=== PATIENT | female | born 1950 | race Caucasian/White ===

== ENCOUNTER → 2016-08-17 | Outpatient (CLI) | payer OTHER, BC ==
[~2016-08-17] MED LIST: ALPR-411 PO; AMOX875T PO; ASCA500 PO; ASPI81TA28 PO; ATEN50TA8 PO; CHOL100010 PO; CITA20TA4 PO; CYCL10TA6 PO; HYDR-5688 PO; HYDROCHLOROT PO; LSN/10125 PO; MAGN400T6 PO; OMEG10007 PO; OMEP20TA PO; OMG3; PANT40TA PO; SIMV40TA2 PO
[2016-08-17 18:04] LABS: URINE APPEARANCE CLEAR (CLEAR); URINE BILIRUBIN NEG (NEG); URINE COLOR YELLOW; URINE EPITHELIAL CELL AUTO >30 /lpf (0-5); URINE NITRITE NEG (NEG); URINE PH 5.5 (4.5-7.5); UROBILINOGEN NEG (NEG)
[2016-08-17 18:05] LABS: MANUAL MICROSCOPIC REQUIRED? NO; REVIEW REQ? NO
== END | disposition home or self-care (01) ==
LOC: C.LABSPEC 17:27
PROVIDERS: ATTEND Physician Assistant
DX: R10.2 Pelvic and perineal pain (principal)

== ENCOUNTER → 2016-08-22 | Outpatient (CLI) | payer OTHER, BC ==
[~2016-08-22] MED LIST changes: +OPTIRAY 320 IV PRN
--- NOTE | 2016-08-22 12:40 | DIAGNOSTIC IMAGING REPORT ---
ABDOMEN AND PELVIS CT WITH IV AND ORAL CONTRAST CT DOSE: 984.42 mGycm HISTORY: Pain PELVIC PAIN, PREVIOUS UTERINE CANCER TECHNIQUE: Multiaxial CT images of the abdomen and pelvis were performed following the use of intravenous and oral contrast. COMPARISON STUDY: 02/05/2015 FINDINGS: Right breast nodule. This appears to been present on the prior outside CT exam. Also left sided breast nodule not completely seen in the prior study. Diagnostic mammography is suggested. Lung bases are considered clear. Liver spleen and pancreas enhance uniformly. Kidneys demonstrate extrarenal pelves as well as peripelvic cyst. There are several cortical cysts. Bowel pattern within the abdomen and pelvis overall is nonobstructive. There is suggestion of slight wall edema of the sigmoid. There is no evidence for abscess collection or obstruction. IMPRESSION: 1. Mild nonspecific sigmoid colitis. 2. No evidence for abscess collection or obstruction. 3. Bilateral breast nodules with diagnostic mammography suggested. 4. Bilateral renal cysts and parapelvic renal cysts change Electronically signed by: Noel Jarvis M.D. 08/22/2016 12:38 PM Dictated Date/Time: 08/22/2016 12:30 PM
== END | disposition home or self-care (01) ==
LOC: C.CTS 12:09
PROVIDERS: ATTEND Physician Assistant
DX: R10.2 Pelvic and perineal pain (principal); Z85.42 Personal history of malignant neoplasm of other parts of uterus; N63 Unspecified lump in breast; N28.1 Cyst of kidney, acquired

== ENCOUNTER 2016-11-21 14:55 | Inpatient (IN) | payer OTHER, BC ==
[~2016-11-21] VITALS: Ht 175.3 cm; Wt 97.0 kg
[2016-11-21] VITALS (7 sets, daily range): BP systolic 126–145; BP diastolic 72–79; PULSE 68–75; TEMP 36.6–37; O2SAT 93–100; Ht 175.3 cm; Wt 97.0 kg
[~2016-11-21 14:55] MED LIST changes: -AMOX875T PO; -HYDR-5688 PO; -OPTIRAY 320 IV PRN; -PANT40TA PO
[2016-11-21] MEDS ORDERED: MoRPHine SULFATE 10 MG/ML CARP/VIAL IV STA (15:12)
[2016-11-21] MEDS ORDERED: SODIUM CHLORIDE 0.9% 1000ML 1,000 ML IV STA (15:12)
[2016-11-21] MEDS ORDERED: ONDANSETRON INJ 2 MG/ML 2 ML VIAL IV STA (15:12)
[2016-11-21] MEDS ORDERED: PANT40TA PO (15:14)
--- NOTE | 2016-11-21 15:15 | EMERGENCY ROOM VISIT NOTE ---
History First contact with patient: 15:02 Chief Complaint: REFERRED BY DOCTOR Stated Complaint: PAIN IN SIDE, HERNIA History of Present Illness The patient is a 66 year old female who presents to the Emergency Room with complaints of pain in her right groin. The patient reports that she has a right inguinal hernia and has been seeing Dr. Leon for this. She states that her pain was intermittent for the past several months. When she woke up this morning, she had worsening pain and associated nausea. She rates her discomfort a 9/10. She is taking hydrocodone without relief of the pain. She denies any aggravating or relieving factors. She reports a previous hysterectomy and ovarian cyst removal. She has a history of hypertension and hyperlipidemia but is otherwise healthy. She denies any skin changes. She denies any urinary symptoms, changes in bowel movements, fevers or chills. Review of Systems A complete 10 point review of systems was reviewed with the patient with pertinent positives and negatives as per history of present illness. All else were negative. Past Medical/Surgical History Medical Problems: (1) Incarcerated inguinal hernia Social History Smoking Status: Current Every Day Smoker Current/Historical Medications Scheduled Ascorbic Acid (Vitamin C), 1 TAB PO QAM Aspirin (Aspirin Ec), 81 MG PO QPM Atenolol (Tenormin), 50 MG PO QAM Atenolol (Tenormin), 0.5 TAB PO HS Cholecalciferol (Vitamin D), 1,000 INTER.UNIT PO QAM Citalopram Hydrobromide (Citalopram Hydrobromide), 1 TAB PO QAM Fish Oil ([place]-3), 1 CAP PO HS Hctz/Lisinopril (Lisinopril/Hctz 10/12.5 Mg), 1 TAB PO QAM Magnesium Oxide (Mag-Ox), 400 MG PO HS Pantoprazole (Protonix), 40 MG PO BID Simvastatin (Zocor), 40 MG PO QPM Scheduled PRN Alprazolam (Xanax), 0.25 MG PO Q6H PRN for Anxiety Cyclobenzaprine Hcl (Flexeril), 10 MG PO TID PRN for SPASMS Physical Exam Vital Signs Date Time Temp Pulse Resp B/P (MAP) Pulse Ox O2 Delivery O2 Flow Rate FiO2 11/21/16 17:50 36.0 69 14 176/79 96 Oxymask 10 11/21/16 16:19 36.6 65 16 149/89 (109) 96 Room Air 11/21/16 15:58 80 18 190/111 98 11/21/16 14:59 36.7 68 18 183/85 97 Room Air Physical Exam VITALS: Vitals are noted on the nurse's note and reviewed by myself. Vital signs stable. GENERAL: This is a 66-year-old female, uncomfortable appearing, well-developed well-nourished. SKIN: No erythema or warmth. HEART: Regular rate and rhythm without murmurs gallops or rubs. LUNGS: Clear to auscultation bilaterally without wheezes, rales or rhonchi. ABDOMEN: Positive bowel sounds x 4. There is a firm, tender mass in the right inguinal region. Abdomen is otherwise nontender. NEURO: Patient was alert and oriented to person place and time. Medical Decision & Procedures Laboratory Results 11/21/16 15:15 Red Blood Count 4.67, Mean Corpuscular Volume 91.2, Mean Corpuscular Hemoglobin 30.2, Mean Corpuscular Hemoglobin Concent 33.1, Mean Platelet Volume 10.3, Neutrophils (%) (Auto) 71.0, Lymphocytes (%) (Auto) 14.9, Monocytes (%) (Auto) 9.3, Eosinophils (%) (Auto) 4.3, Basophils (%) (Auto) 0.2, Neutrophils # (Auto) 7.55, Lymphocytes # (Auto) 1.58, Monocytes # (Auto) 0.99, Eosinophils # (Auto) 0.46, Basophils # (Auto) 0.02 11/21/16 15:15 Test 11/21/16 15:15 White Blood Count 10.63 K/uL (4.8-10.8) Red Blood Count 4.67 M/uL (4.2-5.4) Hemoglobin 14.1 g/dL (12.0-16.0) Hematocrit 42.6 % (37-47) Mean Corpuscular Volume 91.2 fL (80-100) Mean Corpuscular Hemoglobin 30.2 pg (25-34) Mean Corpuscular Hemoglobin Concent 33.1 g/dl (32-36) Platelet Count 294 K/uL (130-400) Mean Platelet Volume 10.3 fL (7.4-10.4) Neutrophils (%) (Auto) 71.0 % Lymphocytes (%) (Auto) 14.9 % Monocytes (%) (Auto) 9.3 % Eosinophils (%) (Auto) 4.3 % Basophils (%) (Auto) 0.2 % Neutrophils # (Auto) 7.55 K/uL (1.4-6.5) Lymphocytes # (Auto) 1.58 K/uL (1.2-3.4) Monocytes # (Auto) 0.99 K/uL (0.11-0.59) Eosinophils # (Auto) 0.46 K/uL (0-0.5) Basophils # (Auto) 0.02 K/uL (0-0.2) RDW Standard Deviation 44.5 fL (36.4-46.3) RDW Coefficient of Variation 13.4 % (11.5-14.5) Immature Granulocyte % (Auto) 0.3 % Immature Granulocyte # (Auto) 0.03 K/uL (0.00-0.02) Anion Gap 8.0 mmol/L (3-11) Est Creatinine Clear Calc Drug Dose 114.4 ml/min Estimated GFR () 110.1 Estimated GFR (Non- 95.0 BUN/Creatinine Ratio 22.1 (10-20) Calcium Level 9.2 mg/dl (8.5-10.1) Total Bilirubin 0.5 mg/dl (0.2-1) Aspartate Amino Transf (AST/SGOT) 11 U/L (15-37) Alanine Aminotransferase (ALT/SGPT) 23 U/L (12-78) Alkaline Phosphatase 110 U/L (45-117) Total Protein 7.6 gm/dl (6.4-8.2) Albumin 3.7 gm/dl (3.4-5.0) Globulin 3.9 gm/dl (2.5-4.0) Albumin/Globulin Ratio 0.9 (0.9-2) Medications Administered Medications (Trade) Dose Ordered Sig/Efe Route Start Time Stop Time Status Last Admin Dose Admin Sodium Chloride 1,000 ml @ 999 mls/hr Q1H1M STAT IV 11/21/16 15:12 11/21/16 16:12 DC 11/21/16 15:12 999 MLS/HR Ondansetron HCl (Zofran Inj) 4 mg NOW STAT IV 11/21/16 15:12 11/21/16 15:13 DC 11/21/16 15:24 4 MG Morphine Sulfate (MoRPHine SULFATE INJ) 8 mg NOW STAT IV 11/21/16 15:12 11/21/16 15:13 DC 11/21/16 15:25 8 MG Bupivacaine HCl (Marcaine 0.5% MPF Inj) 30 ml STK-MED ONCE .ROUTE 11/21/16 16:25 11/21/16 16:26 DC 11/21/16 17:00 7 ML Lactated Ringer's 1,000 ml @ 100 mls/hr Q10H IV 11/21/16 17:48 12/21/16 17:47 11/21/16 19:52 100 MLS/HR ED Course The patient was evaluated as above. Labs were drawn and IV access was obtained. Patient was medicated with 8 mg morphine IV and [address] Kirkpatrick was consulted due to my concern for strangulated hernia. He will evaluate the patient. Dr. Kirkaptrick will take the patient to the OR for management. Medical Decision Differential diagnosis includes strangulated hernia, reducible hernia, mass, abscess, among others. The patient is a 66-year-old female who presents today complaining of right groin pain. Exam was concerning for a very tender, hard mass in the right groin. General surgery was consulted secondary to the concern for possible incarcerated hernia. Patient was evaluated by Dr. Kirkpatrick, who took the patient to the operating room for management of this. She was given pain medication in the emergency department with some relief of her discomfort. Patient remained stable throughout her ED stay. The patient's case was reviewed with Dr. Vela, ED attending physician, who agreed with my assessment and treatment plan. Medication Reconcilliation Current Medication List: was personally reviewed by ga Blood Pressure Screening Patient's blood pressure: Elevated blood pressure Blood pressure disposition: Elevated BP felt to be situational Impression Primary Impression: Incarcerated inguinal hernia Departure Information Referrals Brandt oDrsey M.D. (PCP) Patient Instructions My [facility]
[2016-11-21] MEDS ORDERED: CEFOXITIN SOD 2 GM VIAL IV STA (15:46)
[2016-11-21 15:49] LABS: BASO % 0.2 %; BASO ABS # 0.02 K/uL (0-0.2); COMPLETE YES; EOS % 4.3 %; HEMATOCRIT 42.6 % (37-47); IG% 0.3 %; LYMPH % 14.9 %; LYMPH ABS # 1.58 K/uL (1.2-3.4); MEAN CELL VOLUME 91.2 fL (80-100); MEAN CORPUSCULAR HEMOGLOBIN 30.2 pg (25-34); MEAN CORPUSCULAR HGB CONC 33.1 g/dl (32-36); MEAN PLATELET VOLUME 10.3 fL (7.4-10.4); MONO % 9.3 %; PLATELET COUNT 294 K/uL (130-400); RED BLOOD COUNT 4.67 M/uL (4.2-5.4); WHITE BLOOD COUNT 10.63 K/uL (4.8-10.8)
[2016-11-21] MEDS ORDERED: FENTANYL CITRATE INJ 50 MCG/1 ML 2 ML VIAL ONE (15:55)
[2016-11-21] MEDS ORDERED: MIDAZOLAM HCL 1 MG/ML 2ML VIAL ONE ×2 (15:55→18:30)
--- NOTE | 2016-11-21 15:55 | History and Physical ---
History & Physical Date Nov 21, 2016. Chief Complaint right groin pain History of Present Illness The patient is a 66 year old female with complaints of right groin pain- known right inguinal hernia- now with lump in that area and very tender Additional History Hepatic Disease: No Endocrine Disorder: No Kidney Disease: No Hypertension: Yes Other: smoker Allergies Coded Allergies: Adhesives (Verified Allergy, Mild, RASH, 11/21/16) Caffeine (Verified Allergy, Mild, HEART PAPLPATATIONS, 11/21/16) NO KNOWN DRUG ALLERGIES (Verified Allergy, Mild, ., 11/25/15) Home Medications Scheduled Ascorbic Acid (Vitamin C), 1 TAB PO QAM Aspirin (Aspirin Ec), 81 MG PO QPM Atenolol (Tenormin), 50 MG PO QAM Atenolol (Tenormin), 0.5 TAB PO HS Cholecalciferol (Vitamin D), 1,000 INTER.UNIT PO QAM Citalopram Hydrobromide (Citalopram Hydrobromide), 1 TAB PO QAM Fish Oil ([place]-3), 1 CAP PO HS Hctz/Lisinopril (Lisinopril/Hctz 10/12.5 Mg), 1 TAB PO QAM Magnesium Oxide (Mag-Ox), 400 MG PO HS Pantoprazole (Protonix), 40 MG PO BID Simvastatin (Zocor), 40 MG PO QPM Scheduled PRN Alprazolam (Xanax), 0.25 MG PO Q6H PRN for Anxiety Cyclobenzaprine Hcl (Flexeril), 10 MG PO TID PRN for SPASMS Physical Examination Skin: warm/dry Eyes: normal inspection Head: atraumatic Neck: supple Respiratory/Chest: no respiratory distress Cardiovascular: regular rate, rhythm Abdomen / GI: + pertinent finding (RLQ/ groin tenderness- no erythema) Extremities: normal inspection Diagnosis incarcerated Rt inguinal hernia Plan of Treatment 11/21/16- for open Right inguinal hernia repair- possible bowel resection if strangulated/ infarcted bowel.
[2016-11-21 15:59] LABS: BUN/CREATININE RATIO 22.1 (10-20); CALCIUM 9.2 mg/dl (8.5-10.1); CREATININE 0.6 mg/dl (0.60-1.20); POTASSIUM 4.1 mmol/L (3.5-5.1)
[2016-11-21] MEDS ORDERED: CEFOXITIN IV 2,000 MG in DEXTROSE 5% 50ML 50 ML IV SCH (16:00)
[2016-11-21 16:02] LABS: ALB/GLOB RATIO 0.9 (0.9-2)
[2016-11-21] MEDS ORDERED: GLYCOPYRROLATE INJ 0.2 MG/ML VIAL ONE (16:12)
[2016-11-21] MEDS ORDERED: ONDANSETRON INJ 2 MG/ML 2 ML VIAL ONE (16:12)
[2016-11-21] MEDS ORDERED: DEXAMETHASONE SOD INJ 4 MG/ML VIAL ONE (16:12)
[2016-11-21] MEDS ORDERED: ROCURONIUM BROMIDE 10 MG/ML 5 ML VIAL IV ONE (16:12)
[2016-11-21] MEDS ORDERED: NEOSTIGMINE METHYLSULFATE 5 MG/5 ML SYR ONE (16:12)
[2016-11-21] MEDS ORDERED: SUCCINYLCHOLINE CHLORIDE 20 MG/ML 10 ML VIAL IV ONE (16:12)
[2016-11-21] MEDS ORDERED: PROPOFOL IV EMULSION 10 MG/ML 20 ML VIAL IV ONE (16:12)
[2016-11-21] MEDS ORDERED: LARYING-O-JET KIT (LTA) ONE ×2 (16:12)
[2016-11-21] MEDS ORDERED: LIDOCAINE HCL 2% 2 ML VIAL (20MG/ML) ONE (16:12)
[2016-11-21] MEDS ORDERED: BUPIVACAINE 0.5 % 5 MG/1 ML MPF 30ML VIAL ONE (16:25)
[2016-11-21] MEDS ORDERED: LIDOCAINE HCL 1% 20 ML VIAL ONE (16:25)
[2016-11-21] MEDS ORDERED: CEFAZOLIN SOD 1 GM VIAL ONE (16:25)
[2016-11-21] MEDS ORDERED: EpHEDrine SULFATE 50MG/5ML SYR ONE (16:49)
[2016-11-21] MEDS ORDERED: KETOROLAC TROMETHAMINE 30 MG/ML VIAL ONE (17:27)
--- NOTE | 2016-11-21 17:48 | [facility] Operative Report ---
Operative Report Operative Date Nov 21, 2016. Pre-Operative Diagnosis Incarcerated Right Inguinal Hernia Post-Operative Diagnosis Same as preop Procedure(s) Performed Right Incarcerated Inguinal Hernia Repair Surgeon Dr. Des Kirkpatrick Bonderite Operator Surgeon(s) Dillon Adkins PA-C Estimated Blood Loss 20ML Findings cecum incarcerated w/n hernia- not infarcted Specimens B. Hernia Sac and Lipoma Drains # [address] Rd LEOBARDO to RLQ wound Anesthesia gen Complication(s) None Disposition Recovery Room / PACU I attest to the content of the Intraoperative Record and any orders documented therein. Any exceptions are noted below.
[2016-11-21] MEDS ORDERED: ONDANSETRON INJ 2 MG/ML 2 ML VIAL IV PRN ×2 (18:00→18:30)
[2016-11-21] MEDS ORDERED: PROMETHAZINE HCL INJ 12.5 MG in SODIUM CHLORIDE 0.9% 50ML 50 ML IV PRN (18:00)
[2016-11-21] MEDS ORDERED: HYDROmorphone INJ 1 MG/ML SYR IV PRN (18:00)
[2016-11-21] MEDS ORDERED: PROMETHAZINE HCL INJ 25 MG in SODIUM CHLORIDE 0.9% 50ML 50 ML IV PRN (18:00)
[2016-11-21] MEDS ORDERED: HYDROmorphone INJ 0.5 MG/0.5 ML SYR IV PRN (18:00)
[2016-11-21] MEDS ORDERED: SCOPOLAMINE 1.5 MG TDSY TD ONE (18:15)
[2016-11-21] MEDS ORDERED: NURSING VERBAL MED ORDER ONE ×2 (18:28→21:30)
[2016-11-21] MEDS ORDERED: FLUMAZENIL 0.1 MG/1 ML 10 ML VIAL IV PRN (18:30)
[2016-11-21] MEDS ORDERED: NALOXONE HCL 0.4 MG/1 ML VIAL/CARP IV PRN (18:30)
[2016-11-21] MEDS ORDERED: EpHEDrine SULFATE INJ 50 MG/ML AMP IV PRN (18:30)
[2016-11-21] MEDS ORDERED: FENTANYL CITRATE INJ 50 MCG/1 ML 2 ML VIAL IV PRN (18:30)
[2016-11-21] MEDS ORDERED: LABETALOL HCL IV 5 MG/ML 20ML IV PRN (18:30)
[2016-11-21] MEDS ORDERED: MEPERIDINE HCL 25 MG/ML CARP IV PRN (18:30)
[2016-11-21] MEDS ORDERED: PHENYLEPHRINE 100MCG/ML 5ML SYR IV PRN (18:30)
[2016-11-21] MEDS ORDERED: HYDROmorphone INJ 2 MG/ML SYR/VIAL IV PRN (18:30)
[2016-11-21] MEDS ORDERED: ATROPINE SULFATE 0.1 MG/ML 5ML SYR IV PRN (18:30)
--- NOTE | 2016-11-21 18:41 | Medical Consult ---
Consultation Date of Consultation: Nov 21, 2016. Attending Physician: Dr. Des Kirkpatrick Reason for Consultation: Medical management History of Present Illness This is a 66 y/o female with a history of bilateral inguinal hernias, HTN, HLD, pSVT, anxiety/depression, and uterine cancer s/p hysterectomy and BSO who presents s/p right inguinal hernia repair with Dr. Kirkpatrick on 11/21 for medical management. The patient had a known symptomatic right inguinal hernia with worsening pain. Her pain become much more severe today with associated nausea, prompting her to be evaluated in the ED. There was a concern for an incarcerated hernia. The patient was taken to the OR by Dr. Kirkpatrick and was found to have part of her cecum incarcerated within her hernia but no evidence of infarction. The patient now presents for post op medical management. The patient was seen and examined in the PACU. She reports feeling drowsy but is feeling much better. She currently rates her right groin pain a 2/10. She denies any nausea or vomiting. A White catheter is in place. She has not yet eaten, passed gas or had a bowel movement postoperatively. The patient denies fevers, chills, sweats, chest pain, palpitations, claudication, cough, wheezing , shortness of breath, nausea, vomiting, abdominal pain, dysuria, hematuria, urinary retention, paralysis, weakness, numbness and tingling. 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) Allergies Coded Allergies: Adhesives (Verified Allergy, Mild, RASH, 11/21/16) Caffeine (Verified Allergy, Mild, HEART PAPLPATATIONS, 11/21/16) NO KNOWN DRUG ALLERGIES (Verified Allergy, Mild, ., 11/25/15) Current Inpatient Medications Current Inpatient Medications Medications (Trade) Dose Ordered Sig/Efe Route Start Time Stop Time Status Last Admin Dose Admin Atenolol (Tenormin Tab) 25 mg HS PO 11/21/16 21:00 12/21/16 20:59 UNV Atenolol (Tenormin Tab) 50 mg QAM PO 11/22/16 09:00 12/22/16 08:59 UNV HCTZ/Lisinopril (Prinzide 10-12.5MG Tab) 1 tab QAM PO 11/22/16 09:00 12/22/16 08:59 UNV Simvastatin (Zocor Tab) 40 mg QPM PO 11/21/16 21:00 12/21/16 20:59 UNV Lactated Ringer's 1,000 ml @ 100 mls/hr Q10H IV 11/21/16 17:48 12/21/16 17:47 UNV Cefoxitin Sodium 1000 mg/Dextrose 60 ml @ 100 mls/hr Q6H IV 11/21/16 18:00 12/01/16 17:59 UNV Hydromorphone HCl (Dilaudid Inj) 0.5 mg Q3H PRN IV 11/21/16 18:00 12/05/16 17:59 Hydromorphone HCl (Dilaudid Inj) 1 mg Q3H PRN IV 11/21/16 18:00 12/05/16 17:59 Acetaminophen/ Hydrocodone Bitart (Landing 5/325 Tab) 1 tab Q4 PRN PO 11/22/16 11:00 12/06/16 10:59 Acetaminophen/ Hydrocodone Bitart ([place] 5/325 Tab) 2 tab Q4 PRN PO 11/22/16 11:00 12/06/16 10:59 Promethazine HCl 25 mg/Sodium Chloride 51 ml @ 204 mls/hr Q6H PRN IV 11/21/16 18:00 12/21/16 17:59 Ondansetron HCl (Zofran Inj) 4 mg Q6H PRN IV 11/21/16 18:00 12/21/16 17:59 Ketorolac Tromethamine (Toradol Inj) 30 mg Q6H IV. 11/21/16 18:00 11/26/16 17:59 UNV Promethazine HCl 12.5 mg/Sodium Chloride 50.5 ml @ 202 mls/hr Q6H PRN IV 11/21/16 18:00 12/21/16 17:59 Scopolamine (Transderm-Scop Patch) 1.5 mg ONE ONCE TD 11/21/16 18:15 9/19/17 18:16 UNV Miscellaneous (Remove Transderm-Scop Patch) 1 ea Q48H N/A 11/24/16 18:15 11/24/16 18:16 UNV Hydromorphone HCl (Dilaudid Inj) 0.5 mg Q5M PRN IV 11/21/16 18:30 11/22/16 18:29 UNV Fentanyl Citrate (Fentanyl Inj) 25 mcg Q5M PRN IV 11/21/16 18:30 11/22/16 18:29 UNV Naloxone HCl (Narcan Inj) 0.2 mg Q2M PRN IV 11/21/16 18:30 11/22/16 18:29 UNV Meperidine HCl (Demerol Inj) 12.5 mg Q5M PRN IV 11/21/16 18:30 11/22/16 18:29 UNV Ondansetron HCl (Zofran Inj) 4 mg ONE PRN IV 11/21/16 18:30 UNV Flumazenil (Romazicon Inj) 0.2 mg Q2M PRN IV 11/21/16 18:30 11/22/16 18:29 UNV Labetalol HCl (Normodyne IV) 5 mg Q5M PRN IV 11/21/16 18:30 UNV Ephedrine Sulfate (EpHEDrine SULFATE INJ) 5 mg Q5M PRN IV 11/21/16 18:30 11/22/16 18:29 UNV Atropine Sulfate (Atropine Sulfate 0.1MG/Ml Inj) 0.5 mg Q1M PRN IV 11/21/16 18:30 11/22/16 18:29 UNV Phenylephrine HCl (Farshad-Synephrine 500MCG/5ML Syr) 100 mcg Q5M PRN IV 11/21/16 18:30 11/22/16 18:29 UNV Review of Systems See HPI for pertinent positives and negatives. All other systems reviewed and negative. Physical Exam Date Time Temp Pulse Resp B/P (MAP) Pulse Ox O2 Delivery O2 Flow Rate FiO2 11/21/16 18:10 69 16 162/92 100 Oxymask 10 11/21/16 18:00 63 13 170/92 99 Oxymask 10 11/21/16 17:50 36.0 69 14 176/79 96 Oxymask 10 11/21/16 16:19 36.6 65 16 149/89 (109) 96 Room Air 11/21/16 15:58 80 18 190/111 98 11/21/16 14:59 36.7 68 18 183/85 97 Room Air General appearance: +Obese. Drowsy. Well-developed, well-nourished, no apparent distress Head: Normocephalic, atraumatic Eyes: Normal inspection, PERRL, EOMI ENT: Normal ENT inspection, hearing grossly normal, pharynx normal Neck: Supple, no JVD, trachea midline Respiratory/Chest: Lungs clear to auscultation, normal breath sounds, no respiratory distress Cardiovascular: Regular rate & rhythm, no gallop, no murmur Abdomen/GI: +RLQ and LLQ TTP. Drain in RLQ, surgical site dressed. Normal bowel sounds, non-tender, soft Extremities/Musculoskeletal: +Trace pitting edema. Normal inspection, no calf tenderness Neurological/Psych: Alert, normal mood/affect, oriented x 3 Skin: Normal color, warm/dry, no rash Laboratory Results Last 24 Hours Test 11/21/16 15:15 White Blood Count 10.63 K/uL Red Blood Count 4.67 M/uL Hemoglobin 14.1 g/dL Hematocrit 42.6 % Mean Corpuscular Volume 91.2 fL Mean Corpuscular Hemoglobin 30.2 pg Mean Corpuscular Hemoglobin Concent 33.1 g/dl Platelet Count 294 K/uL Mean Platelet Volume 10.3 fL Neutrophils (%) (Auto) 71.0 % Lymphocytes (%) (Auto) 14.9 % Monocytes (%) (Auto) 9.3 % Eosinophils (%) (Auto) 4.3 % Basophils (%) (Auto) 0.2 % Neutrophils # (Auto) 7.55 K/uL Lymphocytes # (Auto) 1.58 K/uL Monocytes # (Auto) 0.99 K/uL Eosinophils # (Auto) 0.46 K/uL Basophils # (Auto) 0.02 K/uL RDW Standard Deviation 44.5 fL RDW Coefficient of Variation 13.4 % Immature Granulocyte % (Auto) 0.3 % Immature Granulocyte # (Auto) 0.03 K/uL Sodium Level 139 mmol/L Potassium Level 4.1 mmol/L Chloride Level 106 mmol/L Carbon Dioxide Level 25 mmol/L Anion Gap 8.0 mmol/L Blood Urea Nitrogen 13 mg/dl Creatinine 0.60 mg/dl Est Creatinine Clear Calc Drug Dose 114.4 ml/min Estimated GFR () 110.1 Estimated GFR (Non- 95.0 BUN/Creatinine Ratio 22.1 Random Glucose 104 mg/dl Calcium Level 9.2 mg/dl Total Bilirubin 0.5 mg/dl Aspartate Amino Transf (AST/SGOT) 11 U/L Alanine Aminotransferase (ALT/SGPT) 23 U/L Alkaline Phosphatase 110 U/L Total Protein 7.6 gm/dl Albumin 3.7 gm/dl Globulin 3.9 gm/dl Albumin/Globulin Ratio 0.9 Assessment & Plan 66 y/o female with a history of bilateral inguinal hernias, HTN, HLD, pSVT, anxiety/depression, and uterine cancer s/p hysterectomy and BSO who presents s/ p right inguinal hernia repair with Dr. Kirkpatrick on 11/21 for medical management. S/p right incarcerated inguinal hernia repair--POD #0 -Pain management, DVT prophylaxis per primary team -AVSS -NPO except meds, ice chips and sips per Dr. Kirkpatrick HTN, pSVT--stable -Continue atenolol 50 mg PO qam and 25 mg PO qpm, lisinopril/HCTZ 10/12.5 mg PO qd -Hydralazine 10 mg IV q6h prn SBP >180 HLD -Continue simvastatin 40 mg PO qd Anxiety and depression -Continue citalopram 20 mg PO qd -Xanax on hold, pt states she rarely uses Thank you for this consultation. We will continue to follow. I agree with PA assessment and plan Labs reviewed S/P hernia repair HTN uncontrolled Cont PO meds in addition to hydralazine PRN Pain controlled Dispo per surgery team
[2016-11-21] MEDS ORDERED: HydrALAZINE HCL 20 MG/ML VIAL IV. PRN (18:45)
[2016-11-21] MEDS ORDERED: ALBUT/IPRATROP 3MG/0.5MG NEB 3 ML VIAL INH ONE (19:00)
--- NOTE | 2016-11-21 19:13 | Anesthesiology Progress Note ---
Anesthesia Post Op Note Date & Time Nov 21, 2016 at 19:10 Vital Signs Pain Intensity: 2 Vital Signs Past 12 Hours Date Time Temp Pulse Resp B/P (MAP) Pulse Ox O2 Delivery O2 Flow Rate FiO2 11/21/16 19:00 36.9 64 12 140/66 97 Nasal Cannula 2 11/21/16 18:50 70 12 145/78 99 Nasal Cannula 2 11/21/16 18:40 66 16 157/81 99 Nasal Cannula 2 11/21/16 18:30 68 14 161/77 99 Nasal Cannula 2 11/21/16 18:20 63 12 162/86 99 Nasal Cannula 2 11/21/16 18:10 69 16 162/92 100 Oxymask 10 11/21/16 18:00 63 13 170/92 99 Oxymask 10 11/21/16 17:50 36.0 69 14 176/79 96 Oxymask 10 11/21/16 16:19 36.6 65 16 149/89 (109) 96 Room Air 11/21/16 15:58 80 18 190/111 98 11/21/16 14:59 36.7 68 18 183/85 97 Room Air Notes Mental Status: alert / awake / arousable, participated in evaluation Pt Amnestic to Procedure: Yes Nausea / Vomiting: adequately controlled, improving with treatment Pain: adequately controlled Airway Patency, RR, SpO2: stable & adequate BP & HR: stable & adequate Hydration State: stable & adequate Anesthetic Complications: no major complications apparent The patient did well with the procedure. In the PACU she felt like she had some difficulty catching her breath and that she was having some anxiety. She was given a Duoneb and midazolam and feels better.
[2016-11-21] MEDS: LACTATED RINGER'S 1000ML 1,000 ML IV SCH (19:52)
[2016-11-21] MEDS ORDERED: ALPRAZOLAM 0.25 MG TAB PO PRN (21:30)
[2016-11-21] MEDS: CEFOXITIN IV 1,000 MG in DEXTROSE 5% 50ML 50 ML IV SCH (21:51)
[2016-11-21] MEDS: SIMVASTATIN 40 MG TAB PO SCH (21:53)
[2016-11-21 22:41] LABS: MANUAL MICROSCOPIC REQUIRED? NO; REVIEW REQ? NO; URINE APPEARANCE CLEAR (CLEAR); URINE BILIRUBIN NEG (NEG); URINE COLOR YELLOW; URINE EPITHELIAL CELL AUTO 0-5 /lpf (0-5); URINE NITRITE NEG (NEG); URINE SPECIFIC GRAVITY 1.011 (1.000-1.030); UROBILINOGEN NEG (NEG); ZZUR CULT IF INDIC CLEAN CATCH NO
[2016-11-22] VITALS (7 sets, daily range): BP systolic 122–170; BP diastolic 69–91; PULSE 50–72; TEMP 36.8–37.1; O2SAT 92–96
[2016-11-22] MEDS ORDERED: KETOROLAC TROMETHAMINE 15 MG/ML VIAL IV. SCH
[2016-11-22] MEDS: KETOROLAC TROMETHAMINE 15 MG/ML VIAL IV. SCH ×4 (00:52→18:53)
--- NOTE | 2016-11-22 01:37 | OPERATIVE REPORT ---
DATE OF OPERATION: 11/21/2016 NAME OF OPERATION: Emergency repair of incarcerated right inguinal hernia. PREOPERATIVE DIAGNOSIS: Incarcerated right inguinal hernia. POSTOPERATIVE DIAGNOSIS: Same. STAFF SURGEON: Des Kirkpatrick MD BLUEPRINTER: Dillon Adkins PA-C ANESTHESIA: General. FINDINGS: The patient had a segment of her cecum incarcerated within the hernia. It was not infarcted. PROCEDURE: The patient was brought in the operating room and placed on the operating table in supine position. Her abdomen was prepped and draped in usual fashion. A 0.5% plain Marcaine was used to anesthetize the skin and subcutaneous tissue. Incision made in the right lower quadrant over a palpable lump in the inguinal area. Dissection was carried down through the subcutaneous tissue, identifying the external oblique fibers and the external ring with the hernia incarcerated through the ring. The external oblique fibers were incised along their length to the external ring mobilizing the tissue and then opening the sac. The patient had cecum within the sac. There was approximately a 3 cm hernia and on exposure of the cecum and ileum, she had some hemorrhagic bruising at the medial segment of the mesentery near the cecum, this was viable. There was no evidence of cecal infarction or ileal infarction. The site was oversewn by imbricating the tissue using interrupted 2-0 chromic catgut suture. The cecum was then reduced back into the abdomen. There was relatively a significant amount of serous fluid. I did not think it was safe to place mesh and that it may become infected. Therefore, with mild difficulty the hernia sac was mobilized and then closed using 0 chromic catgut suture. There was a lipoma of the cord. The lipoma and part of the sac were removed. Tissue was oversewn using 0 chromic catgut suture. The tissue was then reduced at the level of the internal ring and then a primary repair performed by imbricating the inguinal ligament to the transversalis muscle superiorly using interrupted 0 silk suture. At this point, the external oblique fibers were then closed over the repair incorporating some of the muscle beneath using interrupted 0 Ethibond suture. The site was irrigated with saline solution. A 15 round Avi-Ruelas drain placed in the subcutaneous space, secured to the skin using 3-0 nylon suture. Subcutaneous tissue reapproximated using 2-0 plain catgut suture then the skin reapproximated using 4-0 nylon suture. The patient was then transferred to recovery room in stable condition. I attest to the content of the Intraoperative Record and any orders documented therein. Any exception s are noted below.
[2016-11-22] MEDS: LACTATED RINGER'S 1000ML 1,000 ML IV SCH ×2 (03:48→15:43)
[2016-11-22] MEDS: CEFOXITIN IV 1,000 MG in DEXTROSE 5% 50ML 50 ML IV SCH ×4 (03:53→22:00)
[2016-11-22 05:50] LABS: HEMATOCRIT 38.6 % (37-47); MEAN CELL VOLUME 91.3 fL (80-100); MEAN CORPUSCULAR HEMOGLOBIN 28.6 pg (25-34); MEAN CORPUSCULAR HGB CONC 31.3 g/dl (32-36); MEAN PLATELET VOLUME 10.4 fL (7.4-10.4); PLATELET COUNT 283 K/uL (130-400); RED BLOOD COUNT 4.23 M/uL (4.2-5.4); WHITE BLOOD COUNT 11.22 K/uL (4.8-10.8)
--- NOTE | 2016-11-22 06:19 | Surgery Progress Note ---
Surgery Progress Note Date of Service Nov 22, 2016. Subjective awake , alert- pain controlled with Toradol lindsay magaña Objective Vital Signs: Date Time Temp Pulse Resp B/P (MAP) Pulse Ox O2 Delivery O2 Flow Rate FiO2 11/22/16 03:04 37.1 72 16 122/69 (86) 95 Room Air 11/22/16 00:50 Room Air 11/21/16 23:19 37.0 72 16 130/73 (92) 93 Room Air 11/21/16 21:47 36.9 69 16 126/76 (93) 96 Room Air 11/21/16 20:20 36.6 71 18 132/79 (96) 96 Nasal Cannula 2.0 11/21/16 19:50 36.7 75 16 142/72 (95) 100 Nasal Cannula 2.0 11/21/16 19:47 99 Nasal Cannula 2.0 11/21/16 19:33 36.7 69 16 142/72 99 Nasal Cannula 2.0 11/21/16 19:20 36.7 68 18 145/79 (101) 99 Nasal Cannula 2.0 11/21/16 19:20 Nasal Cannula 2.0 11/21/16 19:00 36.9 64 12 140/66 97 Nasal Cannula 2 11/21/16 18:50 70 12 145/78 99 Nasal Cannula 2 11/21/16 18:40 66 16 157/81 99 Nasal Cannula 2 11/21/16 18:30 68 14 161/77 99 Nasal Cannula 2 11/21/16 18:20 63 12 162/86 99 Nasal Cannula 2 11/21/16 18:10 69 16 162/92 100 Oxymask 10 11/21/16 18:00 63 13 170/92 99 Oxymask 10 11/21/16 17:50 36.0 69 14 176/79 96 Oxymask 10 11/21/16 16:19 36.6 65 16 149/89 (109) 96 Room Air 11/21/16 15:58 80 18 190/111 98 11/21/16 14:59 36.7 68 18 183/85 97 Room Air General Appearance: no apparent distress Respiratory/Chest: no respiratory distress Abdomen: soft Incision(s): dry, intact (LEOBARDO drain in place) Laboratory Results: Results Past 24 Hours Test 11/21/16 15:15 11/21/16 22:00 11/22/16 05:18 Range/Units White Blood Count 10.63 11.22 4.8-10.8 K/uL Red Blood Count 4.67 4.23 4.2-5.4 M/uL Hemoglobin 14.1 12.1 12.0-16.0 g/dL Hematocrit 42.6 38.6 37-47 % Mean Corpuscular Volume 91.2 91.3 80-100 fL Mean Corpuscular Hemoglobin 30.2 28.6 25-34 pg Mean Corpuscular Hemoglobin Concent 33.1 31.3 32-36 g/dl Platelet Count 294 283 130-400 K/uL Mean Platelet Volume 10.3 10.4 7.4-10.4 fL Neutrophils (%) (Auto) 71.0 % Lymphocytes (%) (Auto) 14.9 % Monocytes (%) (Auto) 9.3 % Eosinophils (%) (Auto) 4.3 % Basophils (%) (Auto) 0.2 % Neutrophils # (Auto) 7.55 1.4-6.5 K/uL Lymphocytes # (Auto) 1.58 1.2-3.4 K/uL Monocytes # (Auto) 0.99 0.11-0.59 K/uL Eosinophils # (Auto) 0.46 0-0.5 K/uL Basophils # (Auto) 0.02 0-0.2 K/uL RDW Standard Deviation 44.5 44.2 36.4-46.3 fL RDW Coefficient of Variation 13.4 13.3 11.5-14.5 % Immature Granulocyte % (Auto) 0.3 % Immature Granulocyte # (Auto) 0.03 0.00-0.02 K/uL Sodium Level 139 136-145 mmol/L Potassium Level 4.1 3.5-5.1 mmol/L Chloride Level 106 98-107 mmol/L Carbon Dioxide Level 25 21-32 mmol/L Anion Gap 8.0 3-11 mmol/L Blood Urea Nitrogen 13 7-18 mg/dl Creatinine 0.60 0.60-1.20 mg/dl Est Creatinine Clear Calc Drug Dose 114.4 ml/min Estimated GFR () 110.1 Estimated GFR (Non- 95.0 BUN/Creatinine Ratio 22.1 10-20 Random Glucose 104 70-99 mg/dl Calcium Level 9.2 8.5-10.1 mg/dl Total Bilirubin 0.5 0.2-1 mg/dl Aspartate Amino Transf (AST/SGOT) 11 15-37 U/L Alanine Aminotransferase (ALT/SGPT) 23 12-78 U/L Alkaline Phosphatase 110 45-117 U/L Total Protein 7.6 6.4-8.2 gm/dl Albumin 3.7 3.4-5.0 gm/dl Globulin 3.9 2.5-4.0 gm/dl Albumin/Globulin Ratio 0.9 0.9-2 Urine Color YELLOW Urine Appearance CLEAR CLEAR Urine pH 7.0 4.5-7.5 Urine Specific [place] 1.011 1.000-1.030 Urine Protein NEG NEG Urine Glucose (UA) NEG NEG Urine Ketones TRACE NEG Urine Occult Blood 1+ NEG Urine Nitrite NEG NEG Urine Bilirubin NEG NEG Urine Urobilinogen NEG NEG Urine Leukocyte Esterase NEG NEG Urine WBC (Auto) 0 0-5 /hpf Urine RBC (Auto) 0-4 0-4 /hpf Urine Hyaline Casts (Auto) 0 0-5 /lpf Urine Epithelial Cells (Auto) 0-5 0-5 /lpf Urine Bacteria (Auto) NEG NEG Assessment & Plan 11/22/16- s/p incarcerated Rt ing hernia repair- some ischemia/ bruising of tissue involving cecum- tissue viable , but ice/sips only today. cont IV atbx, d/c magaña, mobilize pt. will adv diet very slowly
[2016-11-22 06:22] LABS: BUN/CREATININE RATIO 18.5 (10-20); CALCIUM 8.8 mg/dl (8.5-10.1); CREATININE 0.62 mg/dl (0.60-1.20); MAGNESIUM 1.8 mg/dl (1.8-2.4); PHOSPHORUS 3.7 mg/dl (2.5-4.9); POTASSIUM 3.9 mmol/L (3.5-5.1)
[2016-11-22] MEDS: CITALOPRAM 20 MG TAB PO SCH (09:17)
[2016-11-22] MEDS: LISINOPRIL/HCTZ 10/12.5MG TAB PO SCH (09:18)
[2016-11-22] MEDS ORDERED: INFLUENZA ADMINISTRATION CHARGE ONE (10:30)
[2016-11-22] MEDS ORDERED: INFLUENZA VACCINE HIGH DOSE 65+ 0.5 ML SYR IM. ONE (10:30)
[2016-11-22] MEDS ORDERED: HYDROCODONE/ACETAMOPHEN 5/325MG TAB PO PRN ×2 (11:00)
--- NOTE | 2016-11-22 11:25 | Hospitalist Progress Note ---
Hospitalist Progress Note Date of Service Nov 22, 2016. (Abida Jenkins ., PA-C) Subjective Pt evaluation today including: conversation w/ patient, conversation w/ family (friend at bedside ), physical exam, lab review, review of studies, review of inpatient medication list Voiding: no voiding problems Patient states she is feeling very well this AM. Pain is significantly improved since yesterday. Currently ice chips/water only per surgery. +flatus, no BM postop. Patient denies any fever, chills, sweats, lightheadedness, dizziness, vision changes, CP, palpitations, edema, SOB, wheezing, cough, nausea, vomiting, diarrhea, urinary symptoms, melena, numbness/tingling, weakness, muscle/joint pain, anxiety/depression, active bleeding, or new skin discoloration/changes. (Abida Jenkins ., PA-C) Medications Current Inpatient Medications Medications (Trade) Dose Ordered Sig/Efe Route Start Time Stop Time Status Last Admin Dose Admin Atenolol (Tenormin Tab) 25 mg HS PO 11/21/16 21:00 12/21/16 20:59 11/21/16 21:52 25 MG Atenolol (Tenormin Tab) 50 mg QAM PO 11/22/16 09:00 12/22/16 08:59 11/22/16 09:18 50 MG HCTZ/Lisinopril (Prinzide 10-12.5MG Tab) 1 tab QAM PO 11/22/16 09:00 12/22/16 08:59 11/22/16 09:18 1 TAB Simvastatin (Zocor Tab) 40 mg QPM PO 11/21/16 21:00 12/21/16 20:59 11/21/16 21:53 40 MG Lactated Ringer's 1,000 ml @ 80 mls/hr [id number] IV 11/21/16 17:48 12/21/16 17:47 11/22/16 03:48 100 MLS/HR Cefoxitin Sodium 1000 mg/Dextrose 60 ml @ 100 mls/hr Q6H IV 11/21/16 22:00 12/01/16 15:59 11/22/16 03:53 100 MLS/HR Hydromorphone HCl (Dilaudid Inj) 0.5 mg Q3H PRN IV 11/21/16 18:00 12/05/16 17:59 Hydromorphone HCl (Dilaudid Inj) 1 mg Q3H PRN IV 11/21/16 18:00 12/05/16 17:59 Acetaminophen/ Hydrocodone Bitart ([place] 5/325 Tab) 1 tab Q4 PRN PO 11/22/16 11:00 12/06/16 10:59 Acetaminophen/ Hydrocodone Bitart ([place] 5/325 Tab) 2 tab Q4 PRN PO 11/22/16 11:00 12/06/16 10:59 Promethazine HCl 25 mg/Sodium Chloride 51 ml @ 204 mls/hr Q6H PRN IV 11/21/16 18:00 12/21/16 17:59 Ondansetron HCl (Zofran Inj) 4 mg Q6H PRN IV 11/21/16 18:00 12/21/16 17:59 11/21/16 18:25 4 MG Promethazine HCl 12.5 mg/Sodium Chloride 50.5 ml @ 202 mls/hr Q6H PRN IV 11/21/16 18:00 12/21/16 17:59 Hydralazine HCl (HydrALAZINE INJ) 10 mg Q6H PRN IV. 11/21/16 18:45 12/21/16 18:44 Citalopram Hydrobromide (celeXA TAB) 20 mg QAM PO 11/22/16 09:00 12/22/16 08:59 11/22/16 09:17 20 MG Ketorolac Tromethamine (Toradol Inj) 15 mg Q6 IV. 11/22/16 00:00 11/24/16 00:00 11/22/16 05:36 15 MG Alprazolam (Xanax Tab) 0.25 mg Q6H PRN PO 11/21/16 21:30 12/21/16 21:29 11/21/16 21:51 0.25 MG (Abida Jenkins, STAR) Objective Vital Signs Date Time Temp Pulse Resp B/P (MAP) Pulse Ox O2 Delivery O2 Flow Rate FiO2 11/22/16 06:48 36.8 69 18 153/72 (99) 95 Room Air 11/22/16 03:04 37.1 72 16 122/69 (86) 95 Room Air 11/22/16 00:50 Room Air 11/21/16 23:19 37.0 72 16 130/73 (92) 93 Room Air 11/21/16 21:47 36.9 69 16 126/76 (93) 96 Room Air 11/21/16 20:20 36.6 71 18 132/79 (96) 96 Nasal Cannula 2.0 11/21/16 19:50 36.7 75 16 142/72 (95) 100 Nasal Cannula 2.0 11/21/16 19:47 99 Nasal Cannula 2.0 11/21/16 19:33 36.7 69 16 142/72 99 Nasal Cannula 2.0 11/21/16 19:20 36.7 68 18 145/79 (101) 99 Nasal Cannula 2.0 11/21/16 19:20 Nasal Cannula 2.0 11/21/16 19:00 36.9 64 12 140/66 97 Nasal Cannula 2 11/21/16 18:50 70 12 145/78 99 Nasal Cannula 2 11/21/16 18:40 66 16 157/81 99 Nasal Cannula 2 11/21/16 18:30 68 14 161/77 99 Nasal Cannula 2 11/21/16 18:20 63 12 162/86 99 Nasal Cannula 2 11/21/16 18:10 69 16 162/92 100 Oxymask 10 11/21/16 18:00 63 13 170/92 99 Oxymask 10 11/21/16 17:50 36.0 69 14 176/79 96 Oxymask 10 11/21/16 16:19 36.6 65 16 149/89 (109) 96 Room Air 11/21/16 15:58 80 18 190/111 98 11/21/16 14:59 36.7 68 18 183/85 97 Room Air (Abida Jenkins, PA-C) Physical Exam General Appearance: no apparent distress Eyes: normal inspection, PERRL ENT: hearing grossly normal Neck: supple Respiratory/Chest: lungs clear, no respiratory distress, no accessory muscle use Cardiovascular: regular rate, rhythm Abdomen: normal bowel sounds, soft, + tenderness (around incision site ), + pertinent finding (R incision site in clean dressing; LEOBARDO drain w/ serosanguineous output ) Neurologic/Psychiatric: alert, normal mood/affect, oriented x 3 Skin: normal color, warm/dry, no rash (Abida Jenkins, STAR) Laboratory Results Last 24 Hours Test 11/21/16 15:15 11/21/16 22:00 11/22/16 05:18 White Blood Count 10.63 K/uL 11.22 K/uL Red Blood Count 4.67 M/uL 4.23 M/uL Hemoglobin 14.1 g/dL 12.1 g/dL Hematocrit 42.6 % 38.6 % Mean Corpuscular Volume 91.2 fL 91.3 fL Mean Corpuscular Hemoglobin 30.2 pg 28.6 pg Mean Corpuscular Hemoglobin Concent 33.1 g/dl 31.3 g/dl Platelet Count 294 K/uL 283 K/uL Mean Platelet Volume 10.3 fL 10.4 fL Neutrophils (%) (Auto) 71.0 % Lymphocytes (%) (Auto) 14.9 % Monocytes (%) (Auto) 9.3 % Eosinophils (%) (Auto) 4.3 % Basophils (%) (Auto) 0.2 % Neutrophils # (Auto) 7.55 K/uL Lymphocytes # (Auto) 1.58 K/uL Monocytes # (Auto) 0.99 K/uL Eosinophils # (Auto) 0.46 K/uL Basophils # (Auto) 0.02 K/uL RDW Standard Deviation 44.5 fL 44.2 fL RDW Coefficient of Variation 13.4 % 13.3 % Immature Granulocyte % (Auto) 0.3 % Immature Granulocyte # (Auto) 0.03 K/uL Sodium Level 139 mmol/L 139 mmol/L Potassium Level 4.1 mmol/L 3.9 mmol/L Chloride Level 106 mmol/L 106 mmol/L Carbon Dioxide Level 25 mmol/L 26 mmol/L Anion Gap 8.0 mmol/L 7.0 mmol/L Blood Urea Nitrogen 13 mg/dl 12 mg/dl Creatinine 0.60 mg/dl 0.62 mg/dl Est Creatinine Clear Calc Drug Dose 114.4 ml/min 110.7 ml/min Estimated GFR () 110.1 108.9 Estimated GFR (Non- 95.0 94.0 BUN/Creatinine Ratio 22.1 18.5 Random Glucose 104 mg/dl 110 mg/dl Calcium Level 9.2 mg/dl 8.8 mg/dl Total Bilirubin 0.5 mg/dl Aspartate Amino Transf (AST/SGOT) 11 U/L Alanine Aminotransferase (ALT/SGPT) 23 U/L Alkaline Phosphatase 110 U/L Total Protein 7.6 gm/dl Albumin 3.7 gm/dl Globulin 3.9 gm/dl Albumin/Globulin Ratio 0.9 Urine Color YELLOW Urine Appearance CLEAR Urine pH 7.0 Urine Specific [place] 1.011 Urine Protein NEG Urine Glucose (UA) NEG Urine Ketones TRACE Urine Occult Blood 1+ Urine Nitrite NEG Urine Bilirubin NEG Urine Urobilinogen NEG Urine Leukocyte Esterase NEG Urine WBC (Auto) 0 /hpf Urine RBC (Auto) 0-4 /hpf Urine Hyaline Casts (Auto) 0 /lpf Urine Epithelial Cells (Auto) 0-5 /lpf Urine Bacteria (Auto) NEG Phosphorus Level 3.7 mg/dl Magnesium Level 1.8 mg/dl (Abida Jenkins PA-C) Assessment and Plan 66 y/o female with a history of bilateral inguinal hernias, HTN, HLD, pSVT, anxiety/depression, and uterine cancer s/p hysterectomy and BSO who presents s/ p right inguinal hernia repair with Dr. Kirkpatrick on 11/21 for medical management. s/p right incarcerated inguinal hernia repair by Dr. Kirkpatrick on 11/22: - Pain management, DVT prophylaxis per primary team - Advance diet as per surgical team - PRP and CBC postop- STABLE - Encouraged incentive spirometer HTN, pSVT- STABLE: - Continue Atenolol 50 mg PO qam and 25 mg PO qpm, Lisinopril/HCTZ 10/12.5 mg PO qd - Hydralazine 10 mg IV q6h prn SBP >180 HLD: Continue Simvastatin 40 mg PO qd Anxiety and depression: Continue Citalopram 20 mg PO qd, Xanax 0.25 mg q6 hrs PRN DVT prophylaxis: As per primary team Code Status: LEVEL I, FULL Dispo: As per primary team Thank you for this consultation. We will continue to follow. (Abida Jenkins, PAJeisonC) i personally examined pt and verified all whitehead points waldo Jenkins PAC feeling better (+) flatus. hungry. vitals noted nad breathing unlabored no pallor or icterus HTN - stable overall. continue to follow otherwise management as above (Sb Norton, D.O.)
[2016-11-22] MEDS: SIMVASTATIN 40 MG TAB PO SCH (21:05)
[2016-11-23] VITALS (10 sets, daily range): BP systolic 149–188; BP diastolic 70–97; PULSE 50–64; TEMP 36.5–36.8; O2SAT 92–96
[2016-11-23] MEDS: KETOROLAC TROMETHAMINE 15 MG/ML VIAL IV. SCH ×5 (00:37→23:53)
[2016-11-23] MEDS: CEFOXITIN IV 1,000 MG in DEXTROSE 5% 50ML 50 ML IV SCH ×4 (04:15→22:50)
[2016-11-23] MEDS: LACTATED RINGER'S 1000ML 1,000 ML IV SCH ×2 (04:15→17:17)
--- NOTE | 2016-11-23 06:47 | Surgery Progress Note ---
Surgery Progress Note Date of Service Nov 23, 2016. Subjective feeling ok, passing flatus no complaints, drainage- expected Objective Vital Signs: Date Time Temp Pulse Resp B/P (MAP) Pulse Ox O2 Delivery O2 Flow Rate FiO2 11/23/16 03:50 36.8 64 16 149/70 (96) 92 Room Air 11/23/16 00:30 Room Air 11/22/16 23:30 36.8 58 16 168/91 (116) 95 Room Air 11/22/16 22:03 162/76 (104) 11/22/16 20:50 50 170/82 (111) 11/22/16 16:45 Room Air 11/22/16 15:26 36.8 58 18 169/84 (112) 92 Room Air 11/22/16 15:05 36.8 59 18 155/84 (107) 96 Room Air 11/22/16 09:45 Room Air 11/22/16 06:48 36.8 69 18 153/72 (99) 95 Room Air General Appearance: no apparent distress Respiratory/Chest: no respiratory distress Abdomen: soft Incision(s): intact Laboratory Results: Results Past 24 Hours Test 11/23/16 04:44 11/23/16 06:30 Range/Units Assessment & Plan 11/23/16- will begin clear liquids, cont IV atbx/ fluids and wound care. slowly advance diet- probable d/c Fri/Sat 11/22/16- s/p incarcerated Rt ing hernia repair- some ischemia/ bruising of tissue involving cecum- tissue viable , but ice/sips only today. cont IV atbx, d/c magaña, mobilize pt. will adv diet very slowly 11/22/16- s/p incarcerated Rt ing hernia repair- some ischemia/ bruising of tissue involving cecum- tissue viable , but ice/sips only today. cont IV atbx, d/c magaña, mobilize pt. will adv diet very slowly
[2016-11-23] MEDS ORDERED: HYDR-5688 PO (07:34)
[2016-11-23] MEDS ORDERED: AMOX875T PO (07:34)
--- NOTE | 2016-11-23 07:37 | Discharge Instructions ---
Discharge Instructions Date of Service Nov 23, 2016. Admission Reason for Admission: Incarcerated Inguinal Hernia Discharge Discharge Diagnosis / Problem: incarcerated Rt inguinal hernia Discharge Goals Goal(s): Decrease discomfort, Improve function, Improve disease control Activity Recommendations Activity Limitations: as noted below Lifting Limitations: no more than 10 pounds Exercise/Sports Limitations: until after follow-up appointment May Resume Sexual Activity: when tolerated Shower/Bathe: tomorrow (don't soak in bathtub) Driving or Machine Use: wait 4-5 days SPECIAL CARE INSTRUCTIONS: * Cover incisions and change daily for comfort/drainage. * Empty drain 2-3 times per day and record. * May use ibuprofen for pain as tolerated. * Expect some swelling and bruising. Call your doctor if: * Temperature above 101 degrees * Pain not relieved by pain medicine ordered * There is increased drainage or redness from any incision * You have any unanswered questions or concerns [phone]. FOLLOW UP VISIT: If not already scheduled, please call the office for a follow-up visit. for next week- drain removal OFFICE PHONE NUMBER: Dr. Kirkpatrick Office . Current Hospital Diet Patient's current hospital diet: N/A, Clear Liquid Diet Discharge Diet Recommended Diet: Regular Diet Procedures Procedures Performed: Right Incarcerated Inguinal Hernia Repair Pending Studies Studies pending at discharge: no Medical Emergencies . Who to Call and When: Medical Emergencies: If at any time you feel your situation is an emergency, please call 911 immediately. . Non-Emergent Contact Non-Emergency issues call your: Primary Care Provider, Surgeon . "Provider Documentation" section prepared by Des Kirkpatrick. . VTE Core Measure Inpt VTE Proph given/why not?: Unfractionated heparin SQ, SCD's
[2016-11-23 07:46] LABS: PROTHROMBIN TIME (PATIENT) 10.8 SECONDS (9.0-12.0)
[2016-11-23] MEDS: LISINOPRIL/HCTZ 10/12.5MG TAB PO SCH (08:07)
[2016-11-23] MEDS: CITALOPRAM 20 MG TAB PO SCH (08:07)
[2016-11-23 09:08] LABS: HEMATOCRIT 37.5 % (37-47); MEAN CELL VOLUME 92.4 fL (80-100); MEAN CORPUSCULAR HEMOGLOBIN 29.6 pg (25-34); MEAN PLATELET VOLUME 10.7 fL (7.4-10.4); PLATELET COUNT 282 K/uL (130-400); RED BLOOD COUNT 4.06 M/uL (4.2-5.4); WHITE BLOOD COUNT 9.41 K/uL (4.8-10.8)
[2016-11-23] MEDS: HEPARIN SOD 5000 UNIT/0.5 ML CARP SQ SCH ×2 (10:14→20:43)
--- NOTE | 2016-11-23 11:10 | Hospitalist Progress Note ---
Hospitalist Progress Note Date of Service Nov 23, 2016. (Abida Jenkins ., STAR) Subjective Pt evaluation today including: conversation w/ patient, physical exam, lab review, review of inpatient medication list Voiding: no voiding problems Patient states she is feeling well. Diet advanced to clear liquid today per surgery. +BM today. Pain is well controlled. Wound dressing changed this AM. Patient denies any fever, chills, sweats, lightheadedness, dizziness, vision changes, CP, palpitations, edema, SOB, wheezing, cough, nausea, vomiting, diarrhea, urinary symptoms, melena, numbness/tingling, weakness, muscle/joint pain, anxiety/depression, active bleeding, or new skin discoloration/changes. (Abida Jenkins ., YENNIFERC) Medications Current Inpatient Medications Medications (Trade) Dose Ordered Sig/Efe Route Start Time Stop Time Status Last Admin Dose Admin Atenolol (Tenormin Tab) 25 mg HS PO 11/21/16 21:00 12/21/16 20:59 11/21/16 21:52 25 MG Atenolol (Tenormin Tab) 50 mg QAM PO 11/22/16 09:00 12/22/16 08:59 11/23/16 08:07 50 MG HCTZ/Lisinopril (Prinzide 10-12.5MG Tab) 1 tab QAM PO 11/22/16 09:00 12/22/16 08:59 11/23/16 08:07 1 TAB Simvastatin (Zocor Tab) 40 mg QPM PO 11/21/16 21:00 12/21/16 20:59 11/22/16 21:05 40 MG Lactated Ringer's 1,000 ml @ 80 mls/hr [id number] IV 11/21/16 17:48 12/21/16 17:47 11/23/16 04:15 80 MLS/HR Cefoxitin Sodium 1000 mg/Dextrose 60 ml @ 100 mls/hr Q6H IV 11/21/16 22:00 12/01/16 15:59 11/23/16 10:03 100 MLS/HR Hydromorphone HCl (Dilaudid Inj) 0.5 mg Q3H PRN IV 11/21/16 18:00 12/05/16 17:59 Hydromorphone HCl (Dilaudid Inj) 1 mg Q3H PRN IV 11/21/16 18:00 12/05/16 17:59 Acetaminophen/ Hydrocodone Bitart ([place] 5/325 Tab) 1 tab Q4 PRN PO 11/22/16 11:00 12/06/16 10:59 Acetaminophen/ Hydrocodone Bitart ([place] 5/325 Tab) 2 tab Q4 PRN PO 11/22/16 11:00 12/06/16 10:59 Promethazine HCl 25 mg/Sodium Chloride 51 ml @ 204 mls/hr Q6H PRN IV 11/21/16 18:00 12/21/16 17:59 Ondansetron HCl (Zofran Inj) 4 mg Q6H PRN IV 11/21/16 18:00 12/21/16 17:59 11/21/16 18:25 4 MG Promethazine HCl 12.5 mg/Sodium Chloride 50.5 ml @ 202 mls/hr Q6H PRN IV 11/21/16 18:00 12/21/16 17:59 Hydralazine HCl (HydrALAZINE INJ) 10 mg Q6H PRN IV. 11/21/16 18:45 12/21/16 18:44 Citalopram Hydrobromide (celeXA TAB) 20 mg QAM PO 11/22/16 09:00 12/22/16 08:59 11/23/16 08:07 20 MG Ketorolac Tromethamine (Toradol Inj) 15 mg Q6 IV. 11/22/16 00:00 11/24/16 00:00 11/23/16 05:58 15 MG Alprazolam (Xanax Tab) 0.25 mg Q6H PRN PO 11/21/16 21:30 12/21/16 21:29 11/21/16 21:51 0.25 MG Heparin Sodium (Porcine) (Heparin Sq 5000 Unit/0.5ml) 5,000 unit Q12H SQ 11/23/16 09:00 12/23/16 08:59 11/23/16 10:14 5,000 UNIT (Abida Jenkins PA-C) Objective Vital Signs Date Time Temp Pulse Resp B/P (MAP) Pulse Ox O2 Delivery O2 Flow Rate FiO2 9/21/17 08:09 61 11/23/16 07:33 36.8 51 16 181/84 (116) 96 Room Air 11/23/16 03:50 36.8 64 16 149/70 (96) 92 Room Air 11/23/16 00:30 Room Air 11/22/16 23:30 36.8 58 16 168/91 (116) 95 Room Air 11/22/16 22:03 162/76 (104) 11/22/16 20:50 50 170/82 (111) 11/22/16 16:45 Room Air 11/22/16 15:26 36.8 58 18 169/84 (112) 92 Room Air 11/22/16 15:05 36.8 59 18 155/84 (107) 96 Room Air 11/22/16 09:45 Room Air (Abida Jenkins, CE-C) Physical Exam General Appearance: no apparent distress Eyes: normal inspection, PERRL ENT: hearing grossly normal Neck: supple Respiratory/Chest: lungs clear, no respiratory distress, no accessory muscle use Cardiovascular: regular rate, rhythm Abdomen: normal bowel sounds, soft, + tenderness (around incision site ), + pertinent finding (LEOBARDO drain w/ serosanguineous output; wound dressing clean) Extremities: no pedal edema, no calf tenderness Neurologic/Psychiatric: alert, normal mood/affect, oriented x 3 Skin: normal color, warm/dry, no rash (Abida Jenkins, PA-C) Laboratory Results Last 24 Hours Test 11/23/16 07:11 11/23/16 08:02 Prothrombin Time 10.8 SECONDS Prothromb Time International Ratio 1.0 (Abida Jenkins, CE-C) Assessment and Plan 66 y/o female with a history of bilateral inguinal hernias, HTN, HLD, pSVT, anxiety/depression, and uterine cancer s/p hysterectomy and BSO who presents s/ p right inguinal hernia repair with Dr. Kirkpatrick on 11/21 for medical management. s/p right incarcerated inguinal hernia repair by Dr. Kirkpatrick on 11/22: - Pain management, DVT prophylaxis per primary team - Advance diet as per surgical team - PRP and CBC postop- STABLE - Encouraged incentive spirometer HTN, pSVT: - Continue Atenolol 50 mg PO qam and 25 mg PO qpm, Lisinopril/HCTZ 10/12.5 mg PO qd - Hydralazine 10 mg IV q6h prn SBP >180 - Continue to monitor BPs, may need medication adjustment due to HTN- could be secondary to situation/pain response HLD: Continue Simvastatin 40 mg PO qd Anxiety and depression: Continue Citalopram 20 mg PO qd, Xanax 0.25 mg q6 hrs PRN DVT prophylaxis: Heparin SQ BID as per primary team Code Status: LEVEL I, FULL Dispo: As per primary team- likely within the next 1-2 days Thank you for this consultation. We will continue to follow. (Abida Jenkins ., PA-C) i personally examined pt and verified all whitehead points w Sophie Jenkins PAC feeling good. no significant pain slept well no significant anxiety vitlas noted nad breathing unlabored no pallor or icterus elevated BP -- HTN -- ?baseline poorer control than she realized vs multifactorial situational. continue current and observe for now. d/w pt when she is discharged to follow BP closely at home to have wide array of #'s to review w PCP. otherwise as above (Sb Norton DConcha.)
[2016-11-23] MEDS: SIMVASTATIN 40 MG TAB PO SCH (20:36)
[2016-11-24 03:36] VITALS: BP 155/84
[2016-11-24] MEDS: CEFOXITIN IV 1,000 MG in DEXTROSE 5% 50ML 50 ML IV SCH ×2 (04:16→10:23)
[2016-11-24] MEDS: LACTATED RINGER'S 1000ML 1,000 ML IV SCH (05:46)
[2016-11-24 07:11] VITALS: BP 174/81; PULSE 58; TEMP 36.8; O2SAT 94
[2016-11-24] MEDS: HEPARIN SOD 5000 UNIT/0.5 ML CARP SQ SCH (07:53)
[2016-11-24] MEDS: CITALOPRAM 20 MG TAB PO SCH (07:55)
[2016-11-24] MEDS: LISINOPRIL/HCTZ 10/12.5MG TAB PO SCH (07:55)
--- NOTE | 2016-11-24 08:32 | DISCHARGE SUMMARY ---
PRINCIPAL DIAGNOSIS: Incarcerated right inguinal hernia. PROCEDURES: The patient underwent emergency repair of incarcerated right inguinal hernia. HISTORY OF PRESENT ILLNESS: The patient is a 66-year-old female with known right inguinal hernia who presented to the Emergency Room with severe pain and a mass in the right inguinal area consistent with an incarcerated right inguinal hernia. HOSPITAL COURSE: The patient was taken to the operating room emergently on 11/21/2016 where she underwent incarcerated right inguinal hernia repair. She had her cecum incarcerated in the hernia, it was not infarcted. It was reduced and the hernia repaired primarily without mesh. A drain was placed. The patient has done relatively well, advancing in both diet and activity, and felt stable for discharge home today to be followed in the surgical clinic within 3-4 days for drain removal.
--- NOTE | 2016-11-24 09:33 | Hospitalist Progress Note ---
Hospitalist Progress Note Date of Service Nov 24, 2016. (Abida Jenkins ., STAR) Subjective Pt evaluation today including: conversation w/ patient, physical exam, lab review, review of inpatient medication list Voiding: no voiding problems Patient states she is feeling well this AM. Eating and drinking OK. Pain well controlled. Patient denies any fever, chills, sweats, lightheadedness, dizziness, vision changes, CP, palpitations, edema, SOB, wheezing, cough, abdominal pain, nausea, vomiting, diarrhea, urinary symptoms, melena, numbness/tingling, weakness, muscle/joint pain, anxiety/depression, active bleeding, or new skin discoloration/changes. (Abida Jenkins, YENNIFERC) Medications Reported Home Medications Medications Dose Route/Sig Max Daily Dose Days Date Category Dose Instructions Augmentin 875-125 mg (Amoxicillin & Pot Clavulanate) 1 Tab Tab 1 Tab PO BID 5 11/23/16 Rx [place] 5MG/325MG (Acetaminophen/Hydrocodone Bitart) Tab 1-2 Tablet PO Q 6 HRS PRN 11/23/16 Rx PRN PAIN Protonix (Pantoprazole Sodium) 40 Mg Tab 40 Mg PO BID 11/21/16 Reported [place]-3 (Fish Oil) 1 Ea Cap 1 Cap PO HS 11/25/15 Reported Mag-Ox (Magnesium Oxide) 400 Mg Tab 400 Mg PO HS 11/25/15 Reported Flexeril (Cyclobenzaprine Hcl) 10 Mg Tab 10 Mg PO TID PRN 11/10/15 Reported Xanax (Alprazolam) 0.5 Mg Tab 0.25 Mg PO Q6H PRN 06/18/15 Reported Aspirin Ec (Aspirin) 81 Mg Tab 81 Mg PO QPM 06/18/15 Reported Vitamin C (Ascorbic Acid) 500 Mg Tab 1 Tab PO QAM 06/18/15 Reported Vitamin D (Cholecalciferol) 1,000 Inter.unit Tab 1,000 Inter.unit PO QAM 06/18/15 Reported Tenormin (Atenolol) 50 Mg Tab 0.5 Tab PO HS 06/18/15 Reported Tenormin (Atenolol) 50 Mg Tab 50 Mg PO QAM 06/18/15 Reported Zocor (Simvastatin) 40 Mg Tab 40 Mg PO QPM 06/18/15 Reported Citalopram Hydrobromide 20 Mg Tab 1 Tab PO QAM 06/18/15 Reported Lisinopril/Hctz 10/12.5 Mg (HCTZ/Lisinopril) 1 Ea Tab 1 Tab PO QAM 06/18/15 Reported (Abida Jenkins, PA-C) Objective Vital Signs Date Time Temp Pulse Resp B/P (MAP) Pulse Ox O2 Delivery O2 Flow Rate FiO2 11/24/16 07:11 36.8 58 18 174/81 (112) 94 Room Air 11/24/16 03:36 155/84 (107) 11/23/16 23:45 Room Air 11/23/16 23:09 36.5 51 16 171/83 (112) 96 Room Air 11/23/16 20:33 58 172/93 (119) 11/23/16 18:52 61 169/97 (121) 11/23/16 15:28 172/82 (112) 11/23/16 15:21 Room Air 11/23/16 15:15 36.7 61 18 188/80 (116) 94 Room Air 11/23/16 11:07 36.8 50 18 180/81 (114) 95 Room Air (Abida Jenkins ., PA-C) Physical Exam General Appearance: no apparent distress, + obese Eyes: normal inspection, PERRL ENT: hearing grossly normal Neck: supple Respiratory/Chest: lungs clear, no respiratory distress, no accessory muscle use Cardiovascular: regular rate, rhythm Abdomen: normal bowel sounds, soft, + tenderness (around incision site ), + pertinent finding (LEOBARDO drain w/ serous output ) Extremities: no pedal edema, no calf tenderness Neurologic/Psychiatric: alert, normal mood/affect, oriented x 3 Skin: normal color, warm/dry, no rash (Abida Jenkins ., PA-C) Assessment and Plan 66 y/o female with a history of bilateral inguinal hernias, HTN, HLD, pSVT, anxiety/depression, and uterine cancer s/p hysterectomy and BSO who presents s/ p right inguinal hernia repair with Dr. Kirkpatrick on 11/21 for medical management. s/p right incarcerated inguinal hernia repair by Dr. Kirkpatrick on 11/22: - Pain management, DVT prophylaxis per primary team - Advance diet as per surgical team- tolerating regular diet - PRP and CBC postop- STABLE - Encouraged incentive spirometer HTN, pSVT: - Continue Atenolol 50 mg PO qam and 25 mg PO qpm, Lisinopril/HCTZ 10/12.5 mg PO qd - Hydralazine 10 mg IV q6h prn SBP >180 - Discussed checking BP 2x daily and keeping log for PCP follow-up- BPs running sbp 150-180s, ?due situational/pain vs need for medication adjustment HLD: Continue Simvastatin 40 mg PO qd Anxiety and depression: Continue Citalopram 20 mg PO qd, Xanax 0.25 mg q6 hrs PRN DVT prophylaxis: Heparin SQ BID as per primary team Code Status: LEVEL I, FULL Dispo: Discharge to home w/ HHS as per primary team (Abida Jenkins, PA-C) case d/w T Gregory PAC pt discharged prior to my being able to see - but care above appears appropriate and pt stable for discharge asked FRANCESCO Prater to set up PCP appt for ~2wks to review blood pressures (Sb Norton D.Maggi.)
[2016-11-24 11:52] VITALS: BP 174/81; PULSE 58; TEMP 36.8; O2SAT 94
== END 2016-11-24 13:09 | disposition home health service (06) | DRG 352 ==
LOC: C.EDB 14:57 → C.MSW 17:53 → ENRESERV 18:29
PROVIDERS: ADMIT Surgery; ATTEND Surgery
PROC: 0YQ50ZZ Repair Right Inguinal Region, Open Approach (ICD-10-PCS; principal; 2016-11-21 16:00)
PROC: 0YB50ZZ Excision of Right Inguinal Region, Open Approach (ICD-10-PCS; principal; 2016-11-21 16:00)
DX: K40.30 Unilateral inguinal hernia, with obstruction, without gangrene, not specified as recurrent (principal); D17.5 Benign lipomatous neoplasm of intra-abdominal organs; I10 Essential (primary) hypertension; E78.5 Hyperlipidemia, unspecified; F41.9 Anxiety disorder, unspecified; F32.9 Major depressive disorder, single episode, unspecified; F17.200 Nicotine dependence, unspecified, uncomplicated; E66.9 Obesity, unspecified; Z68.31 Body mass index [BMI] 31.0-31.9, adult; Z86.79 Personal history of other diseases of the circulatory system; Z85.42 Personal history of malignant neoplasm of other parts of uterus; Z90.710 Acquired absence of both cervix and uterus; Z90.722 Acquired absence of ovaries, bilateral; Z79.82 Long term (current) use of aspirin; Z79.899 Other long term (current) drug therapy; Z82.49 Family history of ischemic heart disease and other diseases of the circulatory system; Z83.3 Family history of diabetes mellitus; Z80.42 Family history of malignant neoplasm of prostate

== ENCOUNTER → 2017-03-16 | Outpatient (CLI) | payer OTHER, BC ==
[~2017-03-16] MED LIST changes: +HYDR-5688 PO; -HYDROCHLOROT PO; -OMEP20TA PO; -OMG3; +PANT40TA PO
== END | disposition home or self-care (01) ==
LOC: C.PAPS 13:53
PROVIDERS: ATTEND Obstetrics & Gynecology
DX: Z12.4 Encounter for screening for malignant neoplasm of cervix (principal); C54.1 Malignant neoplasm of endometrium

== ENCOUNTER → 2017-05-17 | Outpatient (CLI) | payer OTHER, BC ==
[2017-05-17 18:26] LABS: BLOOD UREA NITROGEN 15 mg/dl (7-18); CALCIUM 9.3 mg/dl (8.5-10.1); CARBON DIOXIDE 28 mmol/L (21-32); CREATININE 0.72 mg/dl (0.60-1.20); GLUCOSE 86 mg/dl (70-99); POTASSIUM 4.2 mmol/L (3.5-5.1); SODIUM 135 mmol/L (136-145)
== END | disposition home or self-care (01) ==
LOC: C.LABMFLN 12:05
PROVIDERS: ATTEND Family Medicine
DX: R10.9 Unspecified abdominal pain (principal); I10 Essential (primary) hypertension

== ENCOUNTER → 2017-06-08 | Outpatient (CLI) | payer OTHER, BC ==
[~2017-06-08] MED LIST changes: -HYDR-5688 PO
--- NOTE | 2017-06-12 07:41 | MAMMOGRAPHY REPORT ---
BILATERAL DIGITAL SCREENING MAMMOGRAM TOMOSYNTHESIS WITH CAD: 06/08/2017 CLINICAL HISTORY: Routine screening. TECHNIQUE: Breast tomosynthesis in addition to standard 2D mammography was performed. Current study was also evaluated with a Computer Aided Detection (CAD) system. COMPARISON: Comparison is made to exams dated: 06/25/2016 mammogram, 12/24/2014 mammogram, 12/08/2014 mammogram, 05/19/2013 mammogram, 04/11/2012 mammogram, and 04/25/2011 mammogram - [facility]. BREAST COMPOSITION: The tissue of both breasts is heterogeneously dense, which may obscure small mas ses. FINDINGS: No suspicious masses, calcifications, or areas of architectural distortion are noted in ei ther breast. There has been no significant interval change compared to prior exams. Numerous circums cribed benign-appearing masses are again noted scattered in bilateral breasts, which are considered b enign given the multiplicity and bilaterality. The dominant mass measures approximately 5.3 cm in th e left medial breast at approximately 9:00, which was shown to represent a benign cyst on the prior o [facility] 2016 ultrasound exam. A biopsy clip is again noted within the left medial breast. IMPRESSION: ACR BI-RADS CATEGORY 2: BENIGN There is no mammographic evidence of malignancy. A 1 year screening mammogram is recommended. The pa tient will receive written notification of the results. Approximately 10% of breast cancers are not detected with mammography. A negative mammographic report should not delay biopsy if a clinically suggestive mass is present. Halima Oakley M.D. ah/:06/08/2017 16:09:44 Epic Beacon Analyst: Hemal CASTREJON(Jessika)([place]), [facility] letter sent: Normal 1/2 BI-RADS Code: ACR BI-RADS Category 2: Benign
== END | disposition home or self-care (01) ==
LOC: C.MAMM 10:48
PROVIDERS: ATTEND Family Medicine
DX: Z12.31 Encounter for screening mammogram for malignant neoplasm of breast (principal)

== ENCOUNTER → 2017-10-15 | Outpatient (CLI) | payer OTHER, BC | END | disposition home or self-care (01) | LOC: C.LABMFLN 13:40 | PROVIDERS: ATTEND Family Medicine | DX: R39.9 Unspecified symptoms and signs involving the genitourinary system (principal) ==

== ENCOUNTER → 2017-10-24 | Outpatient (CLI) | payer OTHER, BC | END | disposition home or self-care (01) | LOC: C.LABMFLN 14:03 | PROVIDERS: ATTEND Family Medicine | DX: R19.7 Diarrhea, unspecified (principal) ==